=== PATIENT | male | born 1980 | race African-American/Black ===

== ENCOUNTER 2017-07-31 10:00 | Day surgery (SDC) | payer SELFPAY ==
[~2017-07-31 10:00] MED LIST: RINGER'S SOLUTION,LACTATED 1,000 ML IV PRN; ceFAZolin SODIUM 1 GM VIAL IV PRN
[2017-07-31] MEDS ORDERED: BUPIVACAINE HCL 50 ML VIAL IJ ONE ×2 (12:15)
[2017-07-31] MEDS ORDERED: RINGER'S SOLUTION,LACTATED 1,000 ML IV ONE (13:04)
[2017-07-31 14:19] VITALS: BP 119/79
== END 2017-07-31 10:01 | disposition home or self-care (01) ==
LOC: AMB 10:00
PROVIDERS: ATTEND Orthopaedic Surgery
PROC: 0PST34Z Reposition Right Finger Phalanx with Internal Fixation Device, Percutaneous Approach (ICD-10-PCS; principal; 2017-07-31 13:15)
DX: S62.614A Displaced fracture of proximal phalanx of right ring finger, initial encounter for closed fracture (principal); Z68.23 Body mass index [BMI] 23.0-23.9, adult